=== PATIENT | female | born 1995 | race Caucasian/White ===

== ENCOUNTER 2016-10-06 17:48 | Outpatient (CLI) | payer OTHER | END 2016-10-06 18:52 | disposition home or self-care (01) | LOC: GENOP 17:48 | DX: Z34.93 Encounter for supervision of normal pregnancy, unspecified, third trimester (principal); Z3A.36 36 weeks gestation of pregnancy | CPT/HCPCS: 81001; 83518; G0463 ==

== ENCOUNTER 2016-10-24 01:58 | Outpatient (CLI) | payer OTHER | END 2016-10-24 04:50 | disposition home or self-care (01) | LOC: GENOP 01:58 | DX: O99.89 Other specified diseases and conditions complicating pregnancy, childbirth and the puerperium (principal); R10.9 Unspecified abdominal pain; O42.913 Preterm premature rupture of membranes, unspecified as to length of time between rupture and onset of labor, third trimester; Z3A.36 36 weeks gestation of pregnancy | CPT/HCPCS: 81001; 83518; G0463 ==